=== PATIENT | female | born 1985 | race Hispanic/Latino ===

== ENCOUNTER → 2019-03-17 | Day surgery (SDC) | payer BC ==
[2019-03-16 16:19] LABS: BASOPHILS # (AUTO) 0.1 (0.0-0.1); BASOPHILS % 0.8 % (0.0-1.0); BILIRUBIN,URINE NEGATIVE (NEGATIVE); CLARITY,URINE SL CLOUDY (CLEAR); COLOR,URINE YELLOW (YELLOW); EOSINOPHILS # (AUTO) 0.4 (0.0-0.4); HEMATOCRIT 38.5 % (34.2-44.1); HEMOGLOBIN 13.4 g/dL (12.0-16.0); KETONES,URINE NEGATIVE (NEGATIVE); LEUKOCYTE ESTERASE ,URINE NEGATIVE (NEGATIVE); LYMPHOCYTES % 25.9 % (18.0-39.1); MEAN CORPUSCULAR HEMOGLOBIN 29.5 pg (28-32); MEAN CORPUSCULAR HGB CONC 34.8 g/dL (31-35); MEAN CORPUSCULAR VOLUME 84.6 fL (81-99); MONOCYTES # (AUTO) 0.5 (0.2-0.8); MONOCYTES % 6.7 % (4.4-11.3); NEUTROPHILS # (AUTO) 4.7 (2.1-6.9); NEUTROPHILS % 61.3 % (38.7-80.0); NITRITE,URINE NEGATIVE (NEGATIVE); PLATELET COUNT 242 x10e3/uL (140-360); PROTEIN,URINE DIPSTICK NEGATIVE (NEGATIVE); RED BLOOD COUNT 4.55 x10e6/uL (3.6-5.1); URINE UROBILINOGEN 0.2 mg/dL (0.2 - 1)
[2019-03-16 16:42] LABS: ALANINE AMINOTRANSFERASE 25 IU/L (0-55); ALBUMIN 4.4 g/dL (3.5-5.0); ALBUMIN/GLOBULIN RATIO 1.5 (0.8-2.0); ALKALINE PHOSPHATASE 64 IU/L (40-150); ANION GAP 13.2 mmol/L (8-16); BLOOD UREA NITROGEN 10 mg/dL (7-26); BUN/CREATININE RATIO 15 (6-25); CALCIUM 9.2 mg/dL (8.4-10.2); CARBON DIOXIDE 26 mmol/L (22-29); CHLORIDE 102 mmol/L (98-107); CREATININE, SERUM 0.67 mg/dL (0.57-1.11); EST GLOMERULAR FILTRATION RATE > 60 ML/MIN (60-); GLUCOSE 84 mg/dL (74-118); POTASSIUM 3.2 mmol/L (3.5-5.1); SODIUM 138 mmol/L (136-145)
[~2019-03-17] MED LIST: ACETAMINOPHEN 1000 MG/100 ML IV ONE; CEFOXITIN SOD 1 GM VIAL ONE; DEXAMETHASONE SOD PHOS INJ 4 MG/ML VIAL ONE; FENTANYL CITRATE/PF 100MCG/2 ML INJ ONE; KETOROLAC TROMETHAMINE 30 MG/ML VIAL ONE; LIDOCAINE HCL 2% LOCAL INJ 5 ML SDV VIAL INJ ONE; LISINOPRIL-HCT1 EAC2 PO; METOPROLOL TART25 MG PO; MIDAZOLAM HCL 2 MG/2 ML VIAL ONE; ONDANSETRON HCL INJ 2MG/ML 2ML 2 MG/ML VIAL ONE; PROPOFOL IV EMULSION 10 MG/ML 20 ML VIAL ONE; ROCURONIUM BROMIDE 10 MG/ML 5ML VIAL ONE; SEVOFLURANE INHAL SOLN 250 ML PEN BTL ONE
--- OUTSIDE RECORDS SUMMARY | 2019-03-17 05:56 | XMS REPORT | Summary of Care ---
Author Author Sahara Flores R.N. 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 Unavailable Unavailable Sahara Flores R.N. Unavailable Unavailable GINA Lemon, REJI Unavailable Unavailable CARL RICHARDSON MD Unavailable Unavailable LULÚ SMITH [place], TH[place] Unavailable Unavailable Donald SMITH, Damir Unavailable Unavailable Unavailable Unavailable Functional Status Name Dates Details Functional status health issues are not documented Status: Name Dates Details Cognitive status health issues are not documented Status: Problems Name Dates Details Encounter for well woman exam (V72.31, Z01.419) Status: Active Anemia (285.9, D64.9) Status: Active Screen for STD (sexually transmitted disease) (V74.5, Z11.3) Status: Active IUD (intrauterine device) in place (V45.51, Z97.5) Status: Active Encounter for gynecological examination with Papanicolaou smear of cervix (V72.31, Z01.419) Status: Active Vaginal discharge (623.5, N89.8) Status: Active Bacterial vaginosis (616.10, N76.0) Status: Active 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, 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 Candidiasis of vagina (112.1, B37.3) Status: Active Encounter for insertion of mirena IUD (V25.11, Z30.430) Status: Active IUD check up (V25.42, Z30.431) Status: Active Bleeding after intercourse (626.7, N93.0) Status: Active Neuropathic pain (729.2, M79.2) Status: Active Numbness and tingling (782.0, R20.0) Status: Active Weakness of right arm (729.89, R29.898) Status: Active 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 Marion Storey M.A. * Start : 13-Oct-2016 Active 100 Tablet Bottle Gabapentin 300 MG Oral Capsule 1 cap x 1 on 1st day, 1 cap x 2 on 2nd day, then 1 cap three times daily thereaf ter * Quantity: 90 Refills: 5 REJI FUENTES M.D. * Start : 21-Oct-2016 Active Allergies and Adverse Reactions Name Dates Details No Known Allergies (Allergy) Status: Active Procedures Procedure Dates Details MRI Brain w/wo contrast 25259 Date: 29-Oct-2017 Immunization Name Dates Details Immunizations not documented Family History Name Dates Details Family history of hypertension (V17.49, Z82.49) Status: Active Family history of diabetes mellitus (V18.0, Z83.3) Status: Active Social History Name Dates Details - Status: Name Dates Details Never smoker Vital Signs Date Test Result Details No Known Vitals to report Results Date Description Value Details Results not documented Plan of Care Name Dates Details Planned Observations Planned Goals not documented Planned Encounters Appointment; REJI FUENTES M.D. On: 22-Nov-2017 11:30 Interventions Provided Labs/Procedures/Imaging* MRI Brain w/wo contrast 46640; To Be Done: 29 Oct 2017 Instructions Name Dates Details Instructions not documented Encounters Appointment; NERY CHAIDEZ Encounter Diagnosis: Problem not documented On: 26-Mar-2016 15:15 Appointment; WILFREDO IBRAHIM M.D. Encounter Diagnosis: Problem not documented On: 03-Jul-2016 13:30 Appointment; RADHA GRAY M.D. Encounter Diagnosis: Problem not documented On: 13-Oct-2016 9:15 Appointment; RADHA GRAY M.D. Encounter Diagnosis: Problem not documented On: 20-Oct-2016 10:45 Appointment; REJI FUENTES M.D. Encounter Diagnosis: Problem not documented On: 21-Oct-2016 15:00 Appointment; REJI FUENTES M.D. Encounter Diagnosis: Problem not documented On: 28-Oct-2016 9:30 Appointment; RADHA GRAY M.D. Encounter Diagnosis: Problem not documented On: 03-Nov-2016 8:00 Appointment; RADHA GRAY M.D. Encounter Diagnosis: Problem not documented On: 06-Nov-2016 8:00 Appointment; ZULEIMA MEJIA M.D. Encounter Diagnosis: Problem not documented On: 10-Nov-2016 15:00 Appointment; RADHA GRAY M.D. Encounter Diagnosis: Problem not documented On: 13-Nov-2016 11:00 Appointment; ZULEIMA MEJIA M.D. Encounter Diagnosis: Problem not documented On: 17-Nov-2016 15:00 Appointment; RADHA GRAY M.D. Encounter Diagnosis: Problem not documented On: 24-Nov-2016 11:20 Appointment; REJI FUENTES M.D. Encounter Diagnosis: Problem not documented On: 25-Nov-2016 11:30 Appointment; ZULEIMA MEJIA M.D. Encounter Diagnosis: Problem not documented On: 19-Jan-2017 9:30 Appointment; DAMIR TORREZ M.D. Encounter Diagnosis: Problem not documented On: 19-Mar-2017 12:45 Appointment; PREM RODRIGUEZ M.D. Encounter Diagnosis: Problem not documented On: 23-Apr-2017 15:00 Appointment; STEPHANIE PIERCE M.D. Encounter Diagnosis: Problem not documented On: 12-May-2017 8:45 Appointment; DAMIR TORREZ M.D. Encounter Diagnosis: Problem not documented On: 21-May-2017 13:45 Appointment; RAJAT OH M.D. Encounter Diagnosis: Problem not documented On: 28-Jun-2017 15:45 Appointment; DAMIR TORREZ M.D. Encounter Diagnosis: Problem not documented On: 30-Jul-2017 15:15 Appointment; RAJAT OH M.D. Encounter Diagnosis: Problem not documented On: 01-Sep-2017 13:30 Appointment; DAMIR TORREZ M.D. Encounter Diagnosis: Problem not documented On: 15-Oct-2017 13:00
[2019-03-17 10:56] VITALS: BP 133/77
--- NOTE | 2019-03-17 13:33 | Operative Report ---
DATE OF PROCEDURE: 03/17/2019 SURGEON: Mazin Pérez MD PREOPERATIVE DIAGNOSIS: Chronic cholecystitis. POSTOPERATIVE DIAGNOSIS: Chronic cholecystitis. PROCEDURE PERFORMED: Laparoscopic cholecystectomy. ANESTHESIA: General endotracheal. ESTIMATED BLOOD LOSS: Minimal. DRAINS: None. COMPLICATIONS: None. INDICATIONS AND FINDINGS: A 33-year-old female admitted for cholecystectomy. She had a several month history of right upper quadrant pain associated with fatty food intolerance. She had normal liver chemistries. No history of jaundice. Preoperatively, she was evaluated by GI for diarrhea, was found to have resolving colitis. INTRAOPERATIVE FINDINGS: Cholelithiasis. Gallbladder was full of heavy sediment and gravel as well as several large stones. There was no ductal dilatation. DESCRIPTION OF PROCEDURE: With the patient lying on the operative table in the supine position and after administration of general endotracheal anesthesia, she was prepped and draped for laparoscopic cholecystectomy. The procedure was begun by establishing the pneumoperitoneum in the umbilical site, after stab wound was made in the location and saline drop test was performed and pneumoperitoneum was insufflated to 15 mm of pressure. Then, the 10/11 trocar placed in that location. Under direct vision with the camera, we placed a 10 mm subxiphoid port as well as 2 lateral working ports 5 mm each in right midclavicular line and right anterior axillary line. The gallbladder was then retracted cephalad using grasping forceps through the two 5 mm trocars and the dissection was begun high in the neck until we exposed the cystic duct, which was nondilated. The junction with the common bile duct was seen 360 degrees circumferentially and the common bile duct was not dilated neither. The cystic duct was then transected with 3 titanium clips and then the cystic artery, which had been identified previously was transected with 3 titanium clips also. Then, the gallbladder was taken down from the liver bed using electrocautery dissection. There was small rent made in the gallbladder, which was then required removing the gallbladder after placed in an Endobag. After we did that, we inspected the operative field. We irrigated the field out until there was no bleeding until the effluent fluid was clear. After ascertaining there was no bowel injury, we went ahead and then released the pneumoperitoneum and closed the wound the following way 0 Vicryl x2 for the umbilical fascia, 3-0 Vicryl for the subcutaneous tissue as well as the subxiphoid port and the skin of all the port was closed with paulette. A 0.25% Marcaine with epinephrine was given as local block at the end of the case. The patient tolerated the procedure well and taken to recovery in stable condition. MD FLACO Aguilera/TAWANDA /[id number]
== END | disposition home or self-care (01) ==
LOC: OR 05:53
PROVIDERS: ATTEND Surgery
DX: K80.10 Calculus of gallbladder with chronic cholecystitis without obstruction (principal); Z01.812 Encounter for preprocedural laboratory examination; I10 Essential (primary) hypertension; Z01.810 Encounter for preprocedural cardiovascular examination; K52.9 Noninfective gastroenteritis and colitis, unspecified
CPT/HCPCS: 36415; 47562; 80053; 81003; 81025; 85025; 88304; 93005; C1766; J0131; J0694; J1100; J1885; J2001; J2250; J2405; J2704; J3010